=== PATIENT | female | born 1965 | race American Indian/Alaskan Native ===

== ENCOUNTER 2017-08-06 21:04 | Emergency (ER) | payer OTHER ==
[2017-08-06 21:24] VITALS: BP 157/94
[2017-08-06] MEDS ORDERED: MOTRIN PO ONE (21:25)
[2017-08-06] MEDS ORDERED: XYLOCAINE 1% 20 mL INFILTRATI ONE (22:02)
[2017-08-06] MEDS ORDERED: ZOFRAN ODT PO ONE (22:02)
[2017-08-06] MEDS ORDERED: NORCO 5/325 PO ONE (22:02)
--- NOTE | 2017-08-06 22:04 | Emergency Department Report ---
ED Lower Extremity HPI - General Chief Complaint: Extremity Injury, Lower Stated Complaint: LEFT FOOT TOE PAIN Time Seen by Provider: 08/06/17 21:36 Source: patient Mode of arrival: Ambulatory Limitations: No Limitations - History of Present Illness Initial Comments: 52-year-old female past medical history hypertension presents with complaint of injury to left fourth toe. While playing with her family patient states she stubbed her toe on an object and it immediately bent sideways and she felt immediate pain and difficulty walking. Left fourth toe is visibly laterally displaced. No laceration on exam MD Complaint: foot injury Injury: Toes: Left Type of Injury: blunt Place: home Severity: moderate Severity scale (0 -10): 6 Worsens With: weight bearing, movement Context: direct blow Associated Symptoms: snap/pop sensation, swelling, able to partially bear weight - Related Data Previous Rx's Medication Instructions Recorded Last Taken Type Ibuprofen [Motrin] 800 mg PO Q8HR PRN #20 tablet 04/22/16 Unknown Rx HYDROcodone/APAP 5-325 [Walnut 1 each PO Q6HR PRN #12 tablet 08/06/17 Unknown Rx 5/325] Ibuprofen [Motrin] 600 mg PO Q8H PRN #25 tablet 08/06/17 Unknown Rx Allergies Allergy/AdvReac Type Severity Reaction Status Date / Time No Known Allergies Allergy Verified 04/21/16 23:42 ED Review of Systems ROS: Stated complaint: LEFT FOOT TOE PAIN Other details as noted in HPI Constitutional: denies: chills, fever Eyes: denies: eye pain, eye discharge, vision change ENT: denies: ear pain, throat pain Respiratory: denies: cough, shortness of breath, wheezing Cardiovascular: denies: chest pain, palpitations Endocrine: no symptoms reported Gastrointestinal: denies: abdominal pain, nausea, diarrhea Genitourinary: denies: urgency, dysuria, discharge Musculoskeletal: denies: back pain, joint swelling, arthralgia Skin: denies: rash, lesions Neurological: denies: headache, weakness, paresthesias Psychiatric: denies: anxiety, depression Hematological/Lymphatic: denies: easy bleeding, easy bruising ED Past Medical Hx - Past Medical History Hx Hypertension: Yes - Surgical History Additional Surgical History: ECTOPIC /BREAST / TUBAL LIGATION - Social History Smoking Status: Never Smoker Substance Use Type: None - Medications Home Medications: Home Medications Medication Instructions Recorded Confirmed Last Taken Type Ibuprofen [Motrin] 800 mg PO Q8HR PRN #20 tablet 04/22/16 Unknown Rx HYDROcodone/APAP 5-325 [Walnut 1 each PO Q6HR PRN #12 tablet 08/06/17 Unknown Rx 5/325] Ibuprofen [Motrin] 600 mg PO Q8H PRN #25 tablet 08/06/17 Unknown Rx ED Physical Exam - General Limitations: No Limitations General appearance: alert, in no apparent distress - Head Head exam: Present: atraumatic, normocephalic - Eye Eye exam: Present: normal appearance, PERRL, EOMI - ENT ENT exam: Present: mucous membranes moist - Neck Neck exam: Present: normal inspection - Respiratory Respiratory exam: Present: normal lung sounds bilaterally. Absent: respiratory distress - Cardiovascular Cardiovascular Exam: Present: regular rate, normal rhythm. Absent: systolic murmur, diastolic murmur, rubs, gallop - GI/Abdominal GI/Abdominal exam: Present: soft, normal bowel sounds - Extremities Exam Extremities exam: Present: normal inspection - Expanded Lower Extremity Exam Left Hip exam: Present: normal inspection, full ROM Upper Leg exam: Present: normal inspection, full ROM Knee exam: Present: normal inspection, full ROM Lower Leg exam: Present: normal inspection, full ROM Ankle exam: Present: normal inspection, full ROM Foot/Toe exam: Present: tenderness, swelling (signifcanty tenderness left 4th digit) Neuro vascular tendon exam: Present: no vascular compromise Gait: Positive: antalgic 1 - pain and tendernese here - Back Exam Back exam: Present: normal inspection - Neurological Exam Neurological exam: Present: alert, oriented X3 - Psychiatric Psychiatric exam: Present: normal affect, normal mood - Skin Skin exam: Present: warm, dry, intact, normal color. Absent: rash ED Course Vital Signs 08/06/17 08/06/17 21:18 22:19 Temperature 98.3 F Pulse Rate 94 H Respiratory 18 18 Rate Blood Pressure 157/94 O2 Sat by Pulse 98 Oximetry ED Lower Extremity MDM - Medical Decision Making A/P: Left fourth toe fracture 1-physically reduced via manipulation after digital block of toe 2-patient given crutches and placed in orthopedic shoe/boot 3-distal capillary refill less than one second in all toes distal sensation intact all toes left foot including fourth digit 4- emphasized the importance of follow-up with podiatry and orthopedics to the patient 5- short course Walnut and Motrin when necessary Critical care attestation.: If time is entered above; I have spent that time in minutes in the direct care of this critically ill patient, excluding procedure time. ED Disposition Clinical Impression: Toe fracture, left Qualifiers: Encounter type: initial encounter Toe: lesser toe Fracture type: closed Phalanx : distal Fracture alignment: displaced Qualified Code(s): S92.532A - Displaced fracture of distal phalanx of left lesser toe(s), initial encounter for closed fracture Disposition: TO HOME OR SELFCARE Is pt being admited?: No Does the pt Need Aspirin: No Condition: Stable Instructions: Toe Fracture (ED), RICE Therapy (ED) Prescriptions: HYDROcodone/APAP 5-325 [Walnut 5/325] 1 each PO Q6HR PRN #12 tablet PRN Reason: Pain Ibuprofen [Motrin] 600 mg PO Q8H PRN #25 tablet PRN Reason: Pain Referrals: PRIMARY CARE, [Primary Care Provider] - 3-5 Days [facility] [Provider Group] - 3-5 Days [facility] [Provider Group] - 3-5 Days Forms: Accompanied Note, Work/School Release Form(ED) Time of Disposition: 23:00
--- NOTE | 2017-08-06 22:16 | XRay Report ---
FINAL REPORT PROCEDURE: XR FOOT 3+V LT TECHNIQUE: LEFT foot radiographs, AP, lateral, and oblique views. CPT 81841 HISTORY: 4th toe deformity ON LT FOOT COMPARISON: No prior studies are available for comparison. FINDINGS: Fracture (s) and/or Dislocation(s): An acute fractures are noted involving the proximal and distal portions of 4th proximal phalanx.. Alignment: Joint alignment is normal.. Joint space(s): Normal . Soft tissues: Normal . Bone mineralization: Normal . Foreign bodies: None . Calcaneal spurring: None . IMPRESSION: Acute fractures involving the proximal and distal portions of 4th proximal phalanx..
--- NOTE | 2017-08-07 00:19 | XRay Report ---
FINAL REPORT PROCEDURE: XR FOOT 3+V LT TECHNIQUE: LEFT foot radiographs, AP, lateral, and oblique views. CPT 33387 HISTORY: post reduction of toes 4th digit COMPARISON: No prior studies are available for comparison. FINDINGS: Fracture (s) and/or Dislocation(s): There is an impacted fracture involving the base of the proximal phalanx 4th digit left foot. Alignment: Normal . Joint space(s): Normal . Soft tissues: Normal . Bone mineralization: Normal . Foreign bodies: None . Calcaneal spurring: None . IMPRESSION: Impacted fracture base 4th digit proximal phalanx left foot.
== END 2017-08-06 23:35 | disposition home or self-care (01) ==
LOC: ED 21:04
DX: S92.532A Displaced fracture of distal phalanx of left lesser toe(s), initial encounter for closed fracture (principal); I10 Essential (primary) hypertension; W01.198A Fall on same level from slipping, tripping and stumbling with subsequent striking against other object, initial encounter; Y93.89 Activity, other specified; Y92.89 Other specified places as the place of occurrence of the external cause; Y99.8 Other external cause status
CPT/HCPCS: Q0162